=== PATIENT | male | born 1965 | race Caucasian/White ===

== ENCOUNTER 2020-12-30 11:30 | Emergency (ER) | payer OTHER ==
[~2020-12-30] VITALS: Ht 165.1 cm; Wt 74.8 kg
[2020-12-30 11:32] VITALS: BP 151/99
--- NOTE | 2020-12-30 13:24 | NUR ---
PT W/C ASSISTED TO BED
[2020-12-30] MEDS ORDERED: NAPR-1704 PO (13:37)
[2020-12-30 13:46] VITALS: BP 147/88
--- NOTE | 2020-12-30 13:48 | NUR ---
NO NURSING CARE GIVEN
== END 2020-12-30 13:48 | disposition home or self-care (01) ==
LOC: MED 11:30
DX: S93.602A Unspecified sprain of left foot, initial encounter (principal); S43.402A Unspecified sprain of left shoulder joint, initial encounter; W19.XXXA Unspecified fall, initial encounter; Y93.89 Activity, other specified; Y92.89 Other specified places as the place of occurrence of the external cause; Y99.8 Other external cause status
CPT/HCPCS: 73030; 73630; 99284